=== PATIENT | male | born 1980 | race Caucasian/White ===

== ENCOUNTER 2021-12-22 15:02 | Emergency (ER) | payer BC, SELFPAY ==
--- NOTE | ~2021-12-22 | XR_ITS ---
EXAMINATION: XR toe 1st RT min 2V INDICATION: Right first toe pain, initial encounter TECHNIQUE: Three views of the right first toe are obtained. COMPARISON: None available FINDINGS: There is an acute, traumatic, comminuted, open tuft fracture of the right first distal phal anx. The joint spaces are normal. Soft tissue swelling surrounds the fracture. IMPRESSION: 1. Open, comminuted tuft fracture of the first distal phalanx. Reviewed, dictated and finalized at location F. A ROOM OPERATOR
[2021-12-22 15:06] VITALS: BP 131/81; PULSE 58; RESP 18; TEMP 35.9; O2SAT 97
--- NOTE | 2021-12-22 16:49 | ED.LOWEXIN ---
HPI - Extremity Injury (Lower) General Chief Complaint: Extremity Injury, Lower Stated Complaint: toe pain Time Seen by Provider: 12/22/21 16:03 Source: patient Mode of arrival: wheelchair Limitations: no limitations History of Present Illness HPI Narrative: 41-year-old male presents with right big toe laceration and pain since yesterday. Patient states he was carrying drywall and dropped it on his right big toe. Patient states the area opened up at the base of his nail and has been having pain since. Patient is unsure of his last tetanus shot. Patient denies any other injury. MD complaint: foot injury Onset (ago): day(s) (1) Injury: Right: toes Type of Injury: blunt Related Data Allergies Allergy/AdvReac Type Severity Reaction Status Date / Time No Known Allergies Allergy Verified 12/22/21 17:27 Review of Systems Review of Systems: All systems reviewed & are unremarkable except as noted in HPI and below Constitutional: Constitutional: Reports no additional constitutional complaints Eyes: Eyes: Reports no additional eye complaints ENT: Reports system reviewed and no additional complaints, except as documented Cardiovascular: Cardiovascular: Reports no additional cardiovascular complaints Respiratory: Respiratory: Reports no additional respiratory complaints Gastrointestinal: Gastrointestinal: Reports no additional gastrointestinal complaints Genitourinary: Genitourinary: Reports no additional male genitourinary complaints Musculoskeletal: Musculoskeletal: Reports arthralgias Integumentary/Breasts: Comments: Right big toe laceration Neurologic: Reports system reviewed and no additional complaints, except as documented Psychiatric: Psychiatric: Reports no additional psychiatric complaints Endocrine: Endocrine: Reports no additional endocrine complaints Hematologic/Lymphatic: Hematologic/Lymphatic: Reports no additional hematologic/lymphatic complaints Allergic/Immunologic: Allergic/Immunologic: Reports no additional allergic/immunologic complaints PMFSH Family History Family History (Updated 06/25/19 @ 10:21 by DOCTOR UNKNOWN) Grandparent Family history of malignant neoplasm Family history of malignant neoplasm of breast Diabetes mellitus Mother Family history of chronic obstructive pulmonary disease Father Family history of diabetes mellitus in first degree relative Other Cerebrovascular accident Social History Social History Smoking status: Smoker, status unknown Second hand tobacco smoke exposure: No Alcohol intake: never Exam Narrative: General appearance: Well-developed, well-nourished Skin: Abrasion to base of nailbed of right big toe Head: Normocephalic, nontraumatic Eyes: Clear conjunctiva ENT: Oropharynx normal, ears normal, nose normal Neck: Supple, nontender Chest and respiratory: Airway patent, no respiratory distress, no accessory muscle use Heart: Regular rate/rhythm Abdomen: Soft, nontender, no organomegaly, quiet bowel sounds Vascular: Normal peripheral pulses, normal capillary refill. Musculoskeletal: Normal range of motion, nontender back, pain to radicular Neurologic: Alert and oriented ?3, HIM CLERK is normal as tested, no gross motor deficit Course Course Emergency Course: Spoke with Dr. Alba with Ortho recommending patient's nail be removed. Telfa dressing and Neosporin placed daily. Patient placed on Augmentin. Follow-up in 2 to 3 days in his clinic. Consultations Consultation #1: Dr. Velarde Date: 12/22/21 Time: 16:37 Vital Signs Vital signs: Vital Signs Temperature 35.9 C L 12/22/21 15:06 Pulse Rate 58 L 12/22/21 15:06 Respiratory Rate 18 12/22/21 15:06 Blood
[2021-12-22] MEDS: LIDOCAINE HCL 1% LOCAL INJ 20 ML VIAL INFILTRATE (17:33)
[2021-12-22] MEDS: TETANUS,DIPHTHERIA,AC PERTUSSIS ADULT (0.5 ML) BOOSTRIX IM (17:41)
[2021-12-22 18:04] VITALS: BP 148/88; PULSE 80; RESP 16; TEMP 36.7; O2SAT 98
== END 2021-12-22 18:05 | disposition home or self-care (01) ==
PROVIDERS: Emergency Provider Nurse Practitioner Family; PCP Family Medicine
DX: S92.421B Displaced fracture of distal phalanx of right great toe, initial encounter for open fracture (principal); S97.111A Crushing injury of right great toe, initial encounter; Z23 Encounter for immunization; W20.8XXA Other cause of strike by thrown, projected or falling object, initial encounter
CPT/HCPCS: 11730; 11750; 11760; 73660; 90471; 90715; 99283

== ENCOUNTER 2023-12-06 21:30 | Emergency (ER) | payer BC, SELFPAY ==
[2023-12-06 21:44] VITALS: BP 150/79; PULSE 84; RESP 17; TEMP 36.8; O2SAT 94
[2023-12-07 00:17] VITALS: BP 110/67; PULSE 74; RESP 16; TEMP 36.5; O2SAT 97
--- NOTE | 2023-12-07 00:55 | ED.EAR ---
HPI - Ear Problem General Chief complaint: Ear Stated complaint: cant hear out of left ear Time Seen by Provider: 12/07/23 00:03 History of Present Illness HPI Narrative: 43-year-old male reports for evaluation for left ear discomfort and decreased hearing for the past few days. Patient states he believes he has a cerumen impaction. Reports trying to use water and hydrogen peroxide to irrigate his ear without improvement. Denies or discomfort in his right ear. Related Data Allergies Allergy/AdvReac Type Severity Reaction Status Date / Time No Known Allergies Allergy Verified 12/22/21 17:27 Review of Systems Review of Systems: CONSTITUTIONAL: Denies fever, chills, or sweats. EYES: Denies visual changes, redness, or discharge. ENT: See HPI CARDIOVASCULAR: Denies chest pain, palpitations, or edema. RESPIRATORY: Denies cough or dyspnea. GASTROINTESTINAL: Denies abdominal pain, nausea, vomiting, or diarrhea. GENITOURINARY: Denies dysuria or hematuria. SKIN: Denies rash or itching. MUSCULOSKELETAL: Denies back pain, joint pain, or myalgia. NEUROLOGIC: Denies headache, numbness, or weakness. PSYCHIATRIC: Denies anxiety or depression. [facility] Family History Family History Grandparent Family history of malignant neoplasm Family history of malignant neoplasm of breast Diabetes mellitus Mother Family history of chronic obstructive pulmonary disease Father Family history of diabetes mellitus in first degree relative Other Cerebrovascular accident Social History Social History Smoking status: Smoker, status unknown Second hand tobacco smoke exposure: No Alcohol intake: never Exam Narrative: GENERAL: Well-appearing, well-nourished, and in no acute distress. HEAD: Normocephalic, atraumatic. EYES: PERRLA and EOMI. ENT: Nares clear, no rhinorrhea or epistaxis. Mucous membranes moist. Right TM is lynn nonbulging with normal canal. Left canal with cerumen impaction. Visualized canal is unremarkable. No pain with movement of tenderness, no edema or mastoid tenderness. NECK: Supple. CHEST: Clear to auscultation. No respiratory distress. HEART: Regular rate and rhythm. No murmur heard. Normal peripheral pulses. SKIN: Warm, dry, no rash. NEURO: No focal deficits. Alert and oriented x3 Course Vital Signs Vital signs: Vital Signs Temperature 98.2 F 12/06/23 21:44 Pulse Rate 84 12/06/23 21:44 Respiratory Rate 17 12/06/23 21:44 Blood Pressure 150/79 H 12/06/23 21:44 Pulse Oximetry 94 12/06/23 21:44 Oxygen Delivery Room Air 12/06/23 21:44 Temperature 97.7 F 12/07/23 00:17 Pulse Rate 74 12/07/23 00:17 Respiratory Rate 16 12/07/23 00:17 Blood Pressure 110/67 12/07/23 00:17 Pulse Oximetry 97 12/07/23 00:17 Oxygen Delivery Room Air 12/06/23 21:44 Medical Decision Making MDM Narrative Medical decision making narrative: 43-year-old male reports for evaluation for concern for certain compaction to his left ear. See HPI for further history. Treat vitals significant for elevated blood pressure which has since resolved. Patient is afebrile. Exam is significant for left cerumen impaction, visualized canal is normal. No mastoid tenderness, no pain with movement auricle. Ear irrigated with succesfull disimpaction. On repeat exam, canal mildly erythematous and TM injected. Will start Augmentin to cover for AOM and have the patient follow-up with PCP. Referral provided. Encouraged Debrox drops and to stop using Q-tips. Strict ED return precautions discussed. He is agreeable to plan verbalized understanding. Discharged in stable condition. Vital Signs Vital Signs: Vital Signs Temperature 98.2 F 12/06/23 21:44 Pulse Rate 84 12/06/23 21:44 Respiratory Rate 17 12/06/23 21:44 Blood Pressure 150/79 H 12/06/23 21:44 Pulse Oximetry 94
[2023-12-07] MEDS: AMOXICILLIN/CLAVULANATE K 875-125 MG TAB 1 TABLET PO (01:32)
[2023-12-07 01:33] VITALS: BP 124/76; PULSE 68; RESP 16; TEMP 36.7; O2SAT 97
== END 2023-12-07 01:34 | disposition home or self-care (01) ==
PROVIDERS: Emergency Provider Physician Assistant; PCP Family Medicine
DX: H61.22 Impacted cerumen, left ear (principal)
CPT/HCPCS: 69209; 99283; A9270